=== PATIENT | male | born 1995 | race Caucasian/White ===

== ENCOUNTER 2020-01-26 10:21 | Emergency (ER) | payer BC ==
[2020-01-26] MEDS ORDERED: ASPIRIN 81 MG TABLET, CHEWABLE PO ONE (10:36)
[2020-01-26] MEDS ORDERED: LIDOCAINE 2% VISCOUS SOLN 15 ML UDCUP PO ONE (10:37)
[2020-01-26] MEDS ORDERED: MAG HYDROX/AL HYDROX/SIMETH SUSP 30 ML UDCUP PO ONE (10:37)
--- NOTE | 2020-01-26 10:38 | ER Document Report ---
ED Medical Screen (RME) - General Chief Complaint: Chest Pain Stated Complaint: CHEST PAIN Time Seen by Provider: 01/26/20 10:33 Notes: Patient presents complaining of midsternal chest discomfort for the past year. Patient states that the pain radiates to the medial aspect of the right upper arm. Patient denies any cough cold symptoms or shortness of breath. Patient denies any nausea or vomiting. Patient denies any lightheadedness. Patient went to the urgent care and was advised to come here for cardiac evaluation. I have greeted and performed a rapid initial assessment of this patient. A comprehensive ED assessment and evaluation of the patient, analysis of test results and completion of the medical decision making process will be conducted by additional ED providers. TRAVEL OUTSIDE OF THE [place] IN LAST 30 DAYS: No - Related Data Allergies/Adverse Reactions: No Known Allergies Allergy (Verified 01/26/20 10:34) Physical Exam - Vital signs Vitals: Temp Pulse Resp BP Pulse Ox 98.0 F 69 16 133/75 H 100 01/26/20 10:01/26/20 10:01/26/20 10:01/26/20 10:01/26/20 10:29 - Respiratory Respiratory status: No respiratory distress Chest status: Tender Breath sounds: Normal. No: Nonproductive cough, Rales, Rhonchi, Stridor, Wheezing - Cardiovascular Rhythm: Regular Heart sounds: S1 appreciated, S2 appreciated Murmur: No Course - Vital Signs Vital signs: Temp Pulse Resp BP Pulse Ox 98.0 F 69 16 133/75 H 100 01/26/20 10:01/26/20 10:01/26/20 10:01/26/20 10:01/26/20 10:29
--- NOTE | 2020-01-26 11:09 | RADIOLOGY REPORT (SQ) ---
EXAM DESCRIPTION: CHEST SINGLE VIEW IMAGES COMPLETED DATE/TIME: 01/26/2020 11:02 am REASON FOR STUDY: cp COMPARISON: None. EXAM PARAMETERS: NUMBER OF VIEWS: One view. TECHNIQUE: An AP view of the chest was obtained. RADIATION DOSE: NA LIMITATIONS: None. FINDINGS: LUNGS AND PLEURA: No consolidation, pleural effusion or pneumothorax. MEDIASTINUM AND HILAR STRUCTURES: No mediastinal or hilar contour abnormality. HEART AND VASCULAR STRUCTURES: The cardiac silhouette and pulmonary vasculature are within normal escobar its. BONES: No acute findings. HARDWARE: None in the chest. OTHER: No other finding. IMPRESSION: No acute cardiopulmonary process. TECHNICAL DOCUMENTATION: JOB ID: [id number] 2010 [employer]- All Rights Reserved Reading location - IP/workstation name: [email or web address]
[2020-01-26 11:21] LABS: ALKALINE PHOSPHATASE 96 U/L (38-126); ANION GAP 7 (5-19); ASPARTATE AMINO TRANSFERASE 37 U/L (17-59); BILIRUBIN,TOTAL 1.1 mg/dL (0.2-1.3); BLOOD UREA NITROGEN 16 mg/dL (7-20); CARBON DIOXIDE 30 mmol/L (22-30); CHLORIDE 101 mmol/L (98-107); GLUCOSE 97 mg/dL (75-110); POTASSIUM 4.1 mmol/L (3.6-5.0); TOTAL PROTEIN 7.6 g/dL (6.3-8.2)
[2020-01-26 11:22] LABS: ABSOLUTE EOSINOPHILS # (AUTO) 0.1 10^3/uL (0.0-0.6); ABSOLUTE MONOCYTES (AUTO) 0.6 10^3/uL (0.1-1.4); ABSOLUTE NEUT (AUTO) 5.5 10^3/uL (1.7-8.2); BASOPHILS % (AUTO) 0.5 % (0-2); EOSINOPHILS % (AUTO) 1.5 % (0-6); HEMATOCRIT 49.7 % (37.9-51.0); HEMOGLOBIN 18.2 g/dL (13.5-17.0); LYMPHOCYTES % (AUTO) 24.3 % (13-45); MEAN CORPUSCULAR HEMOGLOBIN 30.5 pg (27.0-33.4); MEAN CORPUSCULAR HGB CONC 36.6 g/dL (32.0-36.0); MEAN CORPUSCULAR VOLUME 83 fl (80-97); MONOCYTES % (AUTO) 6.8 % (3-13); PLATELET COUNT 203 10^3/uL (150-450); RED BLOOD COUNT 5.96 10^6/uL (4.35-5.55); RED CELL DISTRIBUTION WIDTH 12.4 % (11.5-14.0); SEGMENTED NEUTROPHILS % (AUTO) 66.9 % (42-78); TOTAL CELLS COUNTED % (AUTO) 100 %; WHITE BLOOD COUNT 8.2 10^3/uL (4.0-10.5)
[2020-01-26] MEDS ORDERED: NORMAL SALINE 1000 ML 1,000 ML IV ONE (13:09)
--- NOTE | 2020-01-26 14:45 | ER Document Report ---
Entered by KELLI BEJARANO SCRIBE 01/26/20 1138 Acting as scribe for:KENDY TAYLOR MD ED General - General Chief Complaint: Chest Pain Stated Complaint: CHEST PAIN Time Seen by Provider: 01/26/20 10:33 Information source: Patient Notes: This 24-year-old male presents to the emergency department complaining of chest pain that began about a year ago. Patient describes the pain as 1/5, intermittent and radiating to his left arm. Patient states that it is worse to drink lemonade and is worse a few minutes after a cigarette. Patient describes the pain as "feels like heartburn". Patient has been taking Omeprazole with relief. Patient said that his told him to come to the emergency department due to no relief over the past year with [id number] medication. Patient denies black stool, nausea, throat pain, diaphoresis and difficulty swallowing. TRAVEL OUTSIDE OF THE [place] IN LAST 30 DAYS: No - Related Data Allergies/Adverse Reactions: No Known Allergies Allergy (Verified 01/26/20 10:34) Past Medical History - General Information source: Patient - Social History Smoking Status: Current Every Day Smoker Cigarette use (# per day): Yes Chew tobacco use (# tins/day): No Frequency of alcohol use: Occasional Drug Abuse: None Lives with: Spouse/Significant other Family History: Reviewed & Not Pertinent Patient has homicidal ideation: No - Medical History Medical History: Negative Surgical Hx: Negative Review of Systems - Review of Systems Constitutional: See HPI. denies: Diaphoresis EENT: See HPI. denies: Throat pain, Difficulty swallowing Cardiovascular: See HPI, Chest pain Respiratory: No symptoms reported Gastrointestinal: See HPI. denies: Nausea, Black stools Genitourinary: No symptoms reported Male Genitourinary: No symptoms reported Musculoskeletal: No symptoms reported Skin: No symptoms reported Hematologic/Lymphatic: No symptoms reported Neurological/Psychological: No symptoms reported -: Yes All other systems reviewed and negative Physical Exam - Vital signs Vitals: Temp Pulse Resp BP Pulse Ox 98.0 F 69 16 133/75 H 100 01/26/20 10:29 01/26/20 10:29 01/26/20 10:29 01/26/20 10:29 01/26/20 10:29 - Notes Notes: Physical Exam: General: Alert, appears well. HEENT: Normocephalic. Atraumatic. PERRL. Extraocular movements intact. Oropharynx clear. Neck: Supple. Non-tender. Respiratory: No respiratory distress. Clear and equal breath sounds bilaterally. Cardiovascular: Regular rate and rhythm. Abdominal: Normal Inspection. Non-tender. No distension. Normal Bowel Sounds. Back: No gross abnormalities. Extremities: Moves all four extremities. Upper extremities: Normal inspection. Normal ROM. Lower extremities: Normal inspection. No edema. Normal ROM. Neurological: Normal cognition. AAOx4. Normal speech. Psychological: Normal affect. Normal Mood. Skin: Warm. Dry. Normal color. Course - Re-evaluation Re-evalutation: 01/26/20 14:39 Patient is resting comfortably not showing signs of distress. - Vital Signs Vital signs: Temp Pulse Resp BP Pulse Ox 98.0 F 69 13 94/83 L 98 01/26/20 10:34 01/26/20 10:29 01/26/20 13:02 01/26/20 13:02 01/26/20 13:02 - Laboratory Result Diagrams: 01/26/20 10:45 01/26/20 10:45 Laboratory results interpreted by me: 01/26/20 01/26/20 10:45 10:45 RBC 5.96 H Hgb 18.2 H MCHC 36.6 H ALT 59 H Lipase 336.2 H 01/26/20 14:39 Laboratories within normal limits except for a lipase of 336. Also troponin x2 is negative. Patient does not have any abdominal pain denies excessive alcohol use denies any prior history of pancreatitis ulcers gallbladder disease or gastritis. Patient does admit he takes omeprazole to help him with what he calls heartburn. - Diagnostic Test Radiology reviewed: Image reviewed, Reports reviewed Radiology results interpreted by me: 01/26/20 14:40 Chest x-ray shows no acute process. - EKG Interpretation by Me Additional EKG results interpreted by wv: 01/26/20 14:40 Twelve-lead EKG shows normal sinus rhythm no acute changes. Discharge - Discharge Clinical Impression: Chest pain, atypical, Gastro-esophageal reflux, Elevated lipase Condition: Stable Disposition: HOME, SELF-CARE Instructions: Reflux Disease (GERD) ([facility]) Additional Instructions: Chest Pain of Unclear Cause The exact cause of your chest pain isn't clear. Fortunately, there is no ev idence of a dangerous medical condition. Further testing may be required to find the source of the pain. Most often, we find that this pain is coming from the chest wall -- the muscles or rib joints in the chest. But chest pain can come from the lung and lung lining, the esophagus, the heart valves or heart lining, and even the stomach or gallbladder. Rest. Eat lightly until the pain is gone. We may prescribe medicine for pain and inflammation. You should call the physician immediately if the pain radiates to the shoulder, jaw or arms; if you start to run a fever or develop a cough; or if you develop shortness of breath, or other new or alarming symptoms. Follow-up with a primary care doctor for further evaluation of your atypical chest pain gastroesophageal reflux disease and your elevated lipase. Prescriptions: Omeprazole 40 mg PO DAILY #30 capsule.dr Forms: Return to Work, Smoking Cessation Education I personally performed the services described in the documentation, reviewed and edited the documentation which was dictated to the scribe in my presence, and it accurately records my words and actions.
[2020-01-26 15:08] VITALS: BP 122/67
--- NOTE | 2020-01-26 20:46 | EKG REPORT ---
SEVERITY:- NORMAL ECG - SINUS RHYTHM : Confirmed by: Severino Mathis 26-Jan-2020 20:44:40
== END 2020-01-26 15:14 | disposition home or self-care (01) ==
LOC: ER 10:21
DX: K21.9 Gastro-esophageal reflux disease without esophagitis (principal); R07.89 Other chest pain; R79.89 Other specified abnormal findings of blood chemistry; F17.210 Nicotine dependence, cigarettes, uncomplicated; Z79.899 Other long term (current) drug therapy
CPT/HCPCS: 93005; 99285; 96360; 36415; 83690; 85025; 80053; 84484; 71045; 93010; J3490; J7030